=== PATIENT | female | born 1955 | race Caucasian/White ===

== ENCOUNTER 2018-10-03 14:33 | Inpatient (IN) | payer OTHER ==
[~2018-10-03] VITALS: Ht 165.1 cm; Wt 119.0 kg
[2018-10-03 14:58] VITALS: Ht 165.1 cm; Wt 119.0 kg
[2018-10-03 15:59] LABS: BASOPHIL % 0.7 % (0-2); PLATELET COUNT 344 x10^3mcL (130-400)
[2018-10-03 16:01] LABS: RED CELL DISTRIBUTION WIDTH 15.9 % (11.5-14.5)
[2018-10-03 16:08] LABS: CALCIUM 9.2 mg/dL (8.5-10.1); CARBON DIOXIDE 28.6 mmol/L (21-32); POTASSIUM SERUM 3.8 mmol/L (3.5-5.1)
[2018-10-03 16:13] LABS: ALBUMIN 3.3 g/dL (3.4-5.0); BILIRUBIN TOTAL 0.3 mg/dL (0.20-1.00); TOTAL PROTEIN, SERUM 7.9 g/dL (6.4-8.2)
[2018-10-03] MEDS ORDERED: SYN15 (18:38)
[2018-10-03] MEDS ORDERED: GEMFIBROZIL600 MG (18:38)
[2018-10-03] MEDS ORDERED: METFORMIN HYDR500 M1 (18:38)
[2018-10-03] MEDS ORDERED: GOOD SENSE OMEP20 MG (18:38)
[2018-10-03] MEDS ORDERED: METHOTREXATE2.5 M2 (18:39)
[2018-10-03] MEDS ORDERED: FUROSEMIDE20 MG (18:39)
[2018-10-03] MEDS ORDERED: PROPRANOLOL (18:39)
[2018-10-03] MEDS ORDERED: PRA40 (18:39)
[2018-10-03] MEDS ORDERED: PHARMASSURE FO0.4 MG (18:39)
[2018-10-03] MEDS ORDERED: CLOBETASOL PROP0.05% (18:39)
[2018-10-03] MEDS ORDERED: PROAIR HFA8.5 GM (18:39)
[2018-10-03] MEDS ORDERED: LISINOPRIL2.5 MG (18:39)
[2018-10-03] MEDS ORDERED: FLUTICASON0.05 MG/Ac (18:39)
[2018-10-03] MEDS ORDERED: XIIDRA1 EACH (18:40)
[2018-10-03] MEDS ORDERED: TRAMADOL HYDROC (18:40)
[2018-10-03 20:00] VITALS: BP 134/58
[2018-10-03 20:58] VITALS: BP 134/58
[2018-10-03 22:53] VITALS: BP 134/58
[2018-10-04 05:05] VITALS: BP 127/71
[2018-10-04 06:11] LABS: BASOPHIL % 0.1 % (0-2); PLATELET COUNT 345 x10^3mcL (130-400)
[2018-10-04 06:27] LABS: CALCIUM 9.5 mg/dL (8.5-10.1); CARBON DIOXIDE 28.8 mmol/L (21-32); CHLORIDE SERUM 102 mmol/L (98-107); CREATININE SERUM 0.9 mg/dL (0.6-1.0); GFR1 > 60 mL/min; GLUCOSE SERUM 173 mg/dL (74-106); POTASSIUM SERUM 4.3 mmol/L (3.5-5.1); SODIUM SERUM 140 mmol/L (136-145)
[2018-10-04 06:57] LABS: RED CELL DISTRIBUTION WIDTH 15.7 % (11.5-14.5)
[2018-10-04 08:20] VITALS: BP 135/72
[2018-10-04 12:11] VITALS: BP 127/63
[2018-10-04 17:09] VITALS: BP 120/55
[2018-10-04 19:40] VITALS: BP 114/60
[2018-10-05 05:12] VITALS: BP 124/74
[2018-10-05 08:44] VITALS: BP 133/62
[2018-10-05 10:36] LABS: BASOPHIL % 0.3 % (0-2); PLATELET COUNT 345 x10^3mcL (130-400)
[2018-10-05 10:41] LABS: RED CELL DISTRIBUTION WIDTH 15.8 % (11.5-14.5)
[2018-10-05 10:48] LABS: CALCIUM 9.2 mg/dL (8.5-10.1); CARBON DIOXIDE 31.2 mmol/L (21-32); CHLORIDE SERUM 101 mmol/L (98-107); CREATININE SERUM 0.8 mg/dL (0.6-1.0); GFR1 > 60 mL/min; GLUCOSE SERUM 110 mg/dL (74-106); POTASSIUM SERUM 3.2 mmol/L (3.5-5.1); SODIUM SERUM 140 mmol/L (136-145)
[2018-10-05 12:42] VITALS: BP 156/73
[2018-10-05 13:26] VITALS: BP 156/73
[2018-10-05] MEDS ORDERED: XANAX0.5 MG PO (13:28)
[2018-10-05] MEDS ORDERED: Z-PACK PO (13:28)
== END 2018-10-05 14:31 | disposition home or self-care (01) | DRG 291 ==
LOC: ED 14:33 → DU 18:10
PROVIDERS: Emergency Medicine; ADMIT Internal Medicine Pulmonary Disease
DX: I11.0 Hypertensive heart disease with heart failure (principal); I50.31 Acute diastolic (congestive) heart failure; Z68.41 Body mass index [BMI] 40.0-44.9, adult; J20.9 Acute bronchitis, unspecified; R06.00 Dyspnea, unspecified; M06.9 Rheumatoid arthritis, unspecified; M45.9 Ankylosing spondylitis of unspecified sites in spine; M79.7 Fibromyalgia; E06.3 Autoimmune thyroiditis; M35.00 Sjogren syndrome, unspecified; F41.9 Anxiety disorder, unspecified; E66.01 Morbid (severe) obesity due to excess calories
CPT/HCPCS: 78598; 82962; 83880; 85378; A9540; J0696; J1200; J1650; J1940; J2930; J7030; J7620; Q0092